=== PATIENT | male | born 1950 | race Caucasian/White ===

== ENCOUNTER → 2021-10-29 | Outpatient (CLI) | payer SELFPAY ==
--- NOTE | 2021-10-29 09:08 | ECHOD_ITS ---
Reason For Study: OTHER Procedure This was a 2D Doppler, Color Flow transthoracic echocardiogram. Exam performed in department. Left Ventricle Normal LV size. Left ventricular systolic function is normal. The estimated ejection fraction is 55 %. No regional wall motion abnormalities noted. Right Ventricle Normal RV size. Normal systolic function. Atria Normal left atrium. Normal right atrium. Mitral Valve Normal mitral valve. Tricuspid Valve Normal tricuspid valve. Mild tricuspid valve insufficiency. Pulmonary artery systolic pressure is 21 mmHg. Aortic Valve Trisinus/trileaflet aortic valve. Pulmonic Valve Normal pulmonic valve. Great Vessels Moderately dilated aortic root. The pulmonary artery is normal size. Normal inferior vena cava. Pericardium/Pleural No pericardial effusion. MMode/2D Measurements & Calculations LVIDd: 5.1 cm IVSd: 0.81 cm Ao root diam: 5.0 cm LVIDs: 3.7 cm LVPWd: 1.1 cm FS: 27.2 % LAV(MOD-sp4): 22.4 ml LVAd ap4: 35.2 cm2 SV(MOD-sp4): 64.2 ml LVLd ap4: 8.0 cm EDV(MOD-sp4): 124.9 ml EDV(sp4-el): 131.6 ml LVAs ap4: 22.2 cm2 LVLs ap4: 6.9 cm ESV(MOD-sp4): 60.7 ml ESV(sp4-el): 60.2 ml EF(MOD-sp4): 51.4 % EF(sp4-el): 54.2 % SV(sp4-el): 71.4 ml LA A4 area: 11.1 cm2 RA A4 area: 11.0 cm2 Time Measurements MV dec time: 0.24 sec Doppler Measurements & Calculations MV E max hesham: 65.9 cm/sec Lat Peak E' Hesham: 6.1 cm/sec Med Peak E' Hesham: 4.6 cm/sec MV A max hesham: 86.4 cm/sec E/E' lat: 10.8 E/E' med: 14.4 MV E/A: 0.76 MV V2 max: 88.3 cm/sec Ao V2 max: 93.0 cm/sec MV max P.1 mmHg MV dec slope: 275.1 cm/sec2 Ao max P.5 mmHg MV V2 mean: 58.5 cm/sec Ao V2 mean: 66.6 cm/sec MV mean P.5 mmHg Ao mean P.9 mmHg MV V2 VTI: 37.8 cm Ao V2 VTI: 22.7 cm LV V1 max: 57.8 cm/sec PA V2 max: 87.1 cm/sec TR max hesham: 213.1 cm/sec LV V1 max P.3 mmHg PA V2 mean: 61.9 cm/sec TR max P.2 mmHg LV V1 mean P.64 mmHg LV V1 mean: 37.2 cm/sec LV V1 VTI: 12.6 cm ECHO/Echo Complete Interpretation Summary Normal LV size. Left ventricular systolic function is normal. The estimated ejection fraction is 55 %. Moderately dilated aortic root. Ordering Physician: Gautam Pandey Referring Physician: Gautam Pandey Performed By: Monserrat Schwartz RCS
== END | disposition home or self-care (01) ==
PROVIDERS: Referring Provider Internal Medicine Cardiovascular Disease; Visit Provider Internal Medicine Cardiovascular Disease
DX: I77.89 Other specified disorders of arteries and arterioles (principal)
CPT/HCPCS: 93306

== ENCOUNTER 2022-07-31 06:39 | Outpatient (RCR) | payer SELFPAY ==
[2022-07-17 14:59] LABS: Prothrombin Time (Protime)PT. 38.4 SECONDS (11.7-14.9)
[2022-07-23 13:49] LABS: International Normalized Ratio 2.7; Prothrombin Time (Protime)PT. 28.3 SECONDS (11.7-14.9)
[2022-07-23 14:14] LABS: Anion Gap 2 (5-15); BUN 20 mg/dL (7-18); BUN/Creat Ratio 19.8 RATIO (10-20); Calcium,Total 8.8 mg/dL (8.5-10.1); Chloride 105 mmol/L (98-107); Creatinine, Serum 1.01 mg/dL (0.70-1.30); EST Glomerular Filtration Rate 77 mL/min (>60); Est Glom Filt Rate - Afr Amer 93 mL/min (>60); Glucose 119 mg/dL (74-106); Potassium 4.3 mmol/L (3.5-5.1); Sodium Level 137 mmol/L (136-145)
[2022-07-31 08:05] LABS: Anion Gap 0 (5-15); BUN 23 mg/dL (7-18); BUN/Creat Ratio 23.5 RATIO (10-20); Chloride 105 mmol/L (98-107); Creatinine, Serum 0.98 mg/dL (0.70-1.30); EST Glomerular Filtration Rate 80 mL/min (>60); Est Glom Filt Rate - Afr Amer 97 mL/min (>60); Glucose 95 mg/dL (74-106); Potassium 4.4 mmol/L (3.5-5.1); Sodium Level 137 mmol/L (136-145)
[2022-07-31 09:55] LABS: International Normalized Ratio 3.6; Prothrombin Time (Protime)PT. 35.3 SECONDS (11.7-14.9)
== END 2022-08-04 01:06 | disposition home or self-care (01) ==
LOC: LAB 06:39
PROVIDERS: Nurse Practitioner Family; PCP Nurse Practitioner Family; Referring Provider Internal Medicine Cardiovascular Disease; Visit Provider Internal Medicine Cardiovascular Disease
DX: I48.19 Other persistent atrial fibrillation (principal); Z79.01 Long term (current) use of anticoagulants
CPT/HCPCS: 36415; 80048; 85610

== ENCOUNTER 2022-08-28 15:36 | Outpatient (RCR) | payer SELFPAY ==
[2022-08-14 09:44] LABS: International Normalized Ratio 2.1; Prothrombin Time (Protime)PT. 23.6 SECONDS (11.7-14.9)
[2022-08-28 16:49] LABS: Prothrombin Time (Protime)PT. 23.1 SECONDS (11.7-14.9)
== END 2022-08-28 16:30 | disposition home or self-care (01) ==
LOC: LAB 15:36
PROVIDERS: PCP Nurse Practitioner Family; Referring Provider Internal Medicine Cardiovascular Disease; Visit Provider Internal Medicine Cardiovascular Disease
DX: I48.19 Other persistent atrial fibrillation (principal); Z79.01 Long term (current) use of anticoagulants
CPT/HCPCS: 36415; 85610

== ENCOUNTER 2022-09-24 07:58 | Outpatient (RCR) | payer SELFPAY ==
[2022-09-24 08:36] LABS: Prothrombin Time (Protime)PT. 22.8 SECONDS (11.7-14.9)
== END 2022-09-24 18:00 | disposition home or self-care (01) ==
LOC: LAB 07:58
PROVIDERS: PCP Nurse Practitioner Family; Referring Provider Internal Medicine Cardiovascular Disease; Visit Provider Internal Medicine Cardiovascular Disease
DX: I48.19 Other persistent atrial fibrillation (principal); Z79.01 Long term (current) use of anticoagulants
CPT/HCPCS: 36415; 85610

== ENCOUNTER → 2023-07-15 | Outpatient (CLI) | payer SELFPAY | END | disposition home or self-care (01) | PROVIDERS: PCP Nurse Practitioner Family; Visit Provider Nurse Practitioner Family | DX: G47.10 Hypersomnia, unspecified (principal) | CPT/HCPCS: 95810 ==

== ENCOUNTER → 2025-02-08 | Outpatient (CLI) | payer SELFPAY ==
--- NOTE | 2025-02-08 07:57 | CT_ITS ---
PROCEDURE: CTA CHEST W/WO CONTRAST 02/08/2025 REASON FOR EXAM: AORTIC ROOT REPLEACEMENT TECHNIQUE: Procedure Code: [id number] Modality: CT Procedure: CTA CHEST W/WO CONTRAST Multiplanar Sagittal and Coronal images were obtained. 3D post processing was performed CONTRAST: Isovue 370 VOLUME: 100 mL One or more dose reduction techniques were used (e.g., Automated exposure control, adjustment of the mA and/or kV according to patient size, use of iterative reconstruction technique). RADIATION DOSE SUMMARY: CTDlvol: 38 mGy DLP: 415 mGycm COMPARISON: None # of known CTs in the past 12 months: 0 # of known Cardiac Nuclear Medicine Studies in the past 12 months: 0 FINDINGS: Thoracic Aorta: Mild atherosclerotic plaque. 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 No flow is seen around the graft. Mild redundancy of the graft Measurements (cm): Sinuses of Valsalva: 2.7 cm Prosthetic/ascending aortic junction: 3.1 cm Mid ascendin.3 cm Proximal aortic arch: 4.4 cm Mid aortic arch: 3.2 cm Mid descendin.8 cm Aorta at diaphragm: 2.6 cm Aorta at celiac axis: 2.5 cm Heart: Normal-size status post median sternotomy. Coronary artery atherosclerosis mild. Pulmonary Vessels: The timing and quality of the contrast bolus is diagnostic. There is no evidence of acute or chronic pulmonary embolus. Hardware: None Lymph nodes: None appear enlarged Lungs and Airways: No consolidation or mass seen. Intrapulmonary lymph node along minor fissure on image 124. A 4 mm nodule is seen at the right apex on image 207. Pleura: No pleural effusion or pneumothorax Upper Abdomen: Cyst in the central portion of the spleen is benign measuring 3.4 x 2.4 cm. Bones: Degenerative changes of the thoracic spine. CT/CTA Chest W/WO Contrast IMPRESSION: 1. Uncomplicated aortic root graft. Dimensions above. 2. Right upper lobe pulmonary nodule is less than 6 mm. ACR [employer] y recommendations (Rivas, et al. Radiology 2017; 284(1): 228-43) suggest the following: For patients with low risk of lung cancer, no need for follow-up. For patients with high risk of lung cancer, generally no need for follow-up. An optional chest CT at 12 months could be performed if there is high index of suspicion. Reading Location: [id number]
--- NOTE | 2025-02-08 07:57 | ECHOD_ITS ---
Reason For Study Reason For Study: Prosthetic Heart Valve Procedure This was a 2D Doppler, Color Flow transthoracic echocardiogram. Exam performed in department. Left Ventricle Normal LV size. Left ventricular systolic function is normal. The left ventricular ejection fraction is 60 %. Stage 1 diastolic dysfunction. No regional wall motion abnormalities noted. Right Ventricle Normal RV size. Normal systolic function. Atria Normal left atrium. Normal right atrium. Bubble contrast study is positive for PFO. Hypermobile atrial septum. Mitral Valve Mild mitral annular calcification. Mild (1+) mitral valve insufficiency. Tricuspid Valve Normal tricuspid valve. Mild (1+) tricuspid valve insufficiency. Pulmonary artery systolic pressure is 24 mmHg. Aortic Valve Trisinus/trileaflet aortic valve. Mild focal aortic valve thickening. Aortic sclerosis, no stenosis. Pulmonic Valve Normal pulmonic valve. Mild (1+) pulmonic valve insufficiency. Great Vessels Normal sized aortic root. Pericardium/Pleural No pericardial effusion. Medication Performed a rapid injection of agitated mix of 9 cc saline and 1cc air to assess for atrial septal defect. MMode/2D Measurements & Calculations LVIDd: 4.1 cm IVSd: 1.1 cm LVOT diam: 2.1 cm LVIDs: 3.0 cm LVPWd: 0.99 cm RVDd: 4.0 cm FS: 27.8 % LVOT area: 3.6 cm2 Ao root diam: 3.1 cm LAV(MOD-bp): 53.5 ml LVAd ap4: 33.1 cm2 LAV(MOD-bp) Indexed: 29.0 ml/m2 LVLd ap4: 7.3 cm LAV(MOD-sp2): 51.4 ml EDV(MOD-sp4): 120.6 ml LAV(MOD-sp4): 50.4 ml EDV(sp4-el): 126.7 ml LVAs ap4: 18.1 cm2 LVLs ap4: 6.1 cm ESV(MOD-sp4): 46.5 ml ESV(sp4-el): 45.2 ml EF(MOD-sp4): 61.4 % EF(sp4-el): 64.3 % SV(MOD-sp4): 74.1 ml SV(sp4-el): 81.5 ml LA A4 area: 18.9 cm2 SI(MOD-sp4): 40.2 ml/m2 RA A4 area: 16.4 cm2 TAPSE: 1.5 cm Time Measurements MV dec time: 0.29 sec Doppler Measurements & Calculations MV E max hesham: 66.6 cm/sec Lat Peak E' Hesham: 9.8 cm/sec Med Peak E' Hesham: 3.7 cm/sec MV A max hesham: 81.6 cm/sec E/E' lat: 6.8 E/E' med: 18.0 MV E/A: 0.82 MV dec slope: 230.1 cm/sec2 Ao V2 max: 160.1 cm/sec LV V1 max: 106.2 cm/sec Ao max P.3 mmHg LV V1 max P.5 mmHg Ao V2 mean: 107.9 cm/sec LV V1 mean P.9 mmHg Ao mean P.3 mmHg LV V1 mean: 81.1 cm/sec Ao V2 VTI: 37.7 cm LV V1 VTI: 24.1 cm AV (velocity ratio): 0.64 YURI(I,D): 2.3 cm2 YURI(V,D): 2.4 cm2 SV(LVOT): 86.0 ml PA V2 max: 90.8 cm/sec PI end-d hesham: 103.0 cm/sec TR max hesham: 228.3 cm/sec TR max P.8 mmHg ECHO/Echo Complete Interpretation Summary The left ventricular ejection fraction is 60 %. Normal LV size. Stage 1 diastolic dysfunction. Mild mitral annular calcification. Mild (1+) mitral valve insufficiency. Mild (1+) tricuspid valve insufficiency. Mild focal aortic valve thickening. Bubble contrast study is positive for PFO. Left ventricular systolic function is normal. Ordering Physician: Gautam Pandey Referring Physician: Carolina Fuentes Performed By: Makayla Lindsay, JALEN, RVT
== END | disposition home or self-care (01) ==
PROVIDERS: PCP Nurse Practitioner Family; Referring Provider Internal Medicine Cardiovascular Disease; Visit Provider Internal Medicine Cardiovascular Disease
DX: I77.89 Other specified disorders of arteries and arterioles (principal); Z95.2 Presence of prosthetic heart valve
CPT/HCPCS: 71275; 93306; Q9967; A4216

== ENCOUNTER → 2025-03-14 | Outpatient (CLI) | payer SELFPAY ==
[2025-03-14 11:06] LABS: Hematocrit 46.5 % (40-54); Hemoglobin 15.3 g/dL (13.0-16.5); Mean Corp Hgb Conc 32.9 g/dL (32-36); Mean Corpuscular Volume 92.1 fL (80-94); Mean Platelet Vol. 10.9 fl (6.2-12.0); Platelet Count 186 K/mm3 (150-450); RBC Distribution Width CV 13.9 % (11.6-14.6); RBC Distribution Width SD 47.5 fl (35.1-43.9); Red Blood Count 5.05 M/mm3 (4.6-6.2); White Blood Count 8.3 K/mm3 (4.4-11.0)
[2025-03-14 11:35] LABS: AST(SGOT) 24 U/L (<=37); Alanine Aminotransfer ALT/SGPT 22 U/L (<=46); Albumin, Serum 4.1 g/dL (3.4-4.8); Alkaline Phosphatase 90 U/L (40-129); Anion Gap 6 (5-15); BUN 20 mg/dL (4-19); BUN/Creat Ratio 26.2 RATIO (10-20); Calcium,Total 9.4 mg/dL (7.6-11.0); Carbon Dioxide 30.3 mmol/L (21.0-32.0); Chloride 104 mmol/L (98-108); Globulin 2.8 g/dL (2.2-4.2); Glucose 78 mg/dL (70-99); Potassium 4.6 mmol/L (3.3-5.1)
== END | disposition home or self-care (01) ==
PROVIDERS: PCP Nurse Practitioner Family; Referring Provider Nurse Practitioner Family; Visit Provider Nurse Practitioner Family
DX: R53.83 Other fatigue (principal); R73.09 Other abnormal glucose
CPT/HCPCS: 36415; 80053; 83036; 85027